=== PATIENT | female | born 1965 | race Caucasian/White ===

== ENCOUNTER 2018-01-05 07:24 | Emergency (ER) | payer OTHER, BC ==
[~2018-01-05] VITALS: Ht 170.2 cm; Wt 57.6 kg
--- NOTE | 2018-01-05 07:52 | PHYS DOC ---
Past Medical History Past Medical History: Diabetes-Type I Past Surgical History: Hysterectomy, Tonsillectomy Alcohol Use: Rarely Drug Use: None Adult General Chief Complaint Chief Complaint: RIB PAIN HPI HPI Patient is a 52 year old female who presents with left rib pain post fall into a bedpost 5 days ago. Patient had moderate pain at that point however pain became significantly worse over the past 48 hours with sitting in a car and traveling on bumpy roads. Patient reports that pain radiates into her left shoulder. Worse with deep breaths as well as movement. Patient denies any nonaccidental trauma. 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 Patient reports minimal relief with hydrocodone as well as tramadol. No nausea or vomiting. No blood in the stool.[] Review of Systems Review of Systems Constitutional: Denies fever or chills [] Eyes: Denies change in visual acuity, redness, or eye pain [] HENT: Denies nasal congestion or sore throat [] Respiratory: Denies cough or shortness of breath [] Cardiovascular: No additional information not addressed in HPI [] GI: Denies abdominal pain, nausea, vomiting, bloody stools or diarrhea [] : Denies dysuria or hematuria [] Musculoskeletal: Denies back pain or joint pain [] Integument: Denies rash or skin lesions [] Neurologic: Denies headache, focal weakness or sensory changes [] Endocrine: Denies polyuria or polydipsia [] All other systems were reviewed and found to be within normal limits, except as documented in this note. Current Medications Current Medications Current Medications Medications (Trade) Dose Ordered Sig/Mara Start Time Stop Time Status Last Admin Dose Admin Info (CONTRAST GIVEN -- Rx MONITORING) 1 each PRN DAILY PRN 01/05/18 08:00 01/07/18 07:59 Iohexol (Omnipaque 300 Mg/ml) 75 ml 1X ONCE 01/05/18 08:00 01/05/18 08:01 DC 01/05/18 08:00 75 ML Ketorolac Tromethamine (Toradol 15mg Vial) 15 mg 1X ONCE 01/05/18 09:00 01/05/18 09:01 DC 01/05/18 08:45 15 MG Morphine Sulfate (Morphine Sulfate) 4 mg 1X ONCE 01/05/18 08:00 01/05/18 08:01 DC 01/05/18 08:14 4 MG Ondansetron HCl (Zofran) 4 mg 1X ONCE 01/05/18 08:00 01/05/18 08:01 DC 01/05/18 08:14 4 MG Allergies Allergies Allergies Coded Allergies Type Severity Reaction Last Updated Verified Tetracyclines Allergy Unknown 01/05/18 Yes codeine Allergy Unknown 01/05/18 Yes Physical Exam Physical Exam Constitutional: Well developed, well nourished, moderate discomfort, non-toxic appearance. [] HENT: Normocephalic, atraumatic, bilateral external ears normal, oropharynx moist, no oral exudates, nose normal. [] Eyes: PERRLA, EOMI, conjunctiva normal, no discharge. [] Neck: Normal range of motion, no tenderness, supple, no stridor. [] Cardiovascular:Heart rate regular rhythm, no murmur [] Lungs & Thorax: Bilateral breath sounds clear to auscultation , tenderness to palpation along the anterior axillary line of the lower ribs. There is no crepitus, no bruising, no costovertebral angle tenderness[] Abdomen: Bowel sounds normal, soft, no tenderness, no masses, no pulsatile masses. [] Skin: Warm, dry, no erythema, no rash. [] Back: No tenderness, no CVA tenderness. [] Extremities: No tenderness, no cyanosis, no clubbing, ROM intact, no edema. [] Neurologic: Alert and oriented X 3, normal motor function, normal sensory function, no focal deficits noted. [] Psychologic: Affect normal, judgement normal, mood normal. [] Current Patient Data Vital Signs Vital Signs Date Time Temp Pulse Resp B/P (MAP) Pulse Ox O2 Delivery O2 Flow Rate FiO2 01/05/18 07:35 98.2 100 20 153/72 (99) 98 Room Air 98.2 Lab Values Laboratory Tests Test 01/05/18 08:05 White Blood Count 4.2 x10^3/uL (4.0-11.0) Red Blood Count 4.58 x10^6/uL (3.50-5.40) Hemoglobin 12.2 g/dL (12.0-15.5) Hematocrit 37.3 % (36.0-47.0) Mean Corpuscular Volume 82 fL (79-100) Mean Corpuscular Hemoglobin 27 pg (25-35) Mean Corpuscular Hemoglobin Concent 33 g/dL (31-37) Red Cell Distribution Width 18.3 % (11.5-14.5) H Platelet Count 361 x10^3/uL (140-400) Neutrophils (%) (Auto) 67 % (31-73) Lymphocytes (%) (Auto) 23 % (24-48) L Monocytes (%) (Auto) 6 % (0-9) Eosinophils (%) (Auto) 4 % (0-3) H Basophils (%) (Auto) 1 % (0-3) Neutrophils # (Auto) 2.8 x10^3uL (1.8-7.7) Lymphocytes # (Auto) 0.9 x10^3/uL (1.0-4.8) L Monocytes # (Auto) 0.2 x10^3/uL (0.0-1.1) Eosinophils # (Auto) 0.1 x10^3/uL (0.0-0.7) Basophils # (Auto) 0.0 x10^3/uL (0.0-0.2) Prothrombin Time 12.8 SEC (11.7-14.0) Prothrombin Time INR 1.0 (0.8-1.1) Urine Collection Type Unknown Urine Color Chelsy Urine Clarity Hazy Urine pH 5.0 Urine Specific [place] 1.025 Urine Protein Negative mg/dL (NEG-TRACE) Urine Glucose (UA) 500 mg/dL (NEG) Urine Ketones (Stick) 15 mg/dL (NEG) Urine Blood Negative (NEG) Urine Nitrite Negative (NEG) Urine Bilirubin Small (NEG) Urine Urobilinogen Dipstick 0.2 mg/dL (0.2 mg/dL) Urine Leukocyte Esterase Negative (NEG) Urine RBC Occ /HPF (0-2) Urine WBC 1-4 /HPF (0-4) Urine Squamous Epithelial Cells Many /LPF Urine Bacteria Mod /HPF (0-FEW) Urine Mucus Marked /LPF Urine Yeast Present /HPF Sodium Level 138 mmol/L (136-145) Potassium Level 4.6 mmol/L (3.5-5.1) Chloride Level 101 mmol/L (98-107) Carbon Dioxide Level 28 mmol/L (21-32) Anion Gap 9 (6-14) Blood Urea Nitrogen 7 mg/dL (7-20) Creatinine 0.8 mg/dL (0.6-1.0) Estimated GFR (Cockcroft-Gault) 75.9 BUN/Creatinine Ratio 9 (6-20) Glucose Level 264 mg/dL (70-99) H Calcium Level 8.7 mg/dL (8.5-10.1) Total Bilirubin 0.3 mg/dL (0.2-1.0) Aspartate Amino Transferase (AST) 122 U/L (15-37) H Alanine Aminotransferase (ALT) 122 U/L (14-59) H Alkaline Phosphatase 273 U/L (46-116) H Total Protein 7.3 g/dL (6.4-8.2) Albumin 3.2 g/dL (3.4-5.0) L Albumin/Globulin Ratio 0.8 (1.0-1.7) L Lipase 63 U/L (73-393) L Laboratory Tests 01/05/18 08:05 Laboratory Tests 01/05/18 08:05 EKG EKG [] Radiology/Procedures Radiology/Procedures CT scan the abdomen and pelvis shows no CT evidence of an acute abdominal or pelvic process. There is a right adnexal hypodensity measuring up to 2.8 cm. If the patient is post menopausal, follow-up pelvic ultrasound is recommended. The patient is premenopausal, finding it and is likely a physiologic cyst and no additional follow-up is needed Chest x-ray and ribs x-ray shows nondisplaced left seventh and probable left eighth rib fractures. No acute cardiopulmonary abnormality.[] Course & Med Decision Making Course & Med Decision Making Pertinent Labs and Imaging studies reviewed. (See chart for details) ED course: Patient arrived, was placed in bed, and tolerated exam well patient did get some relief with IV narcotic pain medicines as well as more relief with the IV NSAIDs. Patient was transported to and from CT scan without any complications. After the return lab and imaging findings these were discussed with the patient, she voiced understanding. All questions were answered. Medical decision making: There is no evidence of a pneumothorax or hemothorax, no evidence of splenic injury nor acute intra-abdominal process from this traumatic mechanism. The cyst was discussed with the patient along with need for follow-up. She voiced that she is perimenopausal.[] Dragon Disclaimer Dragon Disclaimer This electronic medical record was generated, in whole or in part, using a voice recognition dictation system. Departure Departure Impression: Primary Impression: Ribs, multiple fractures Disposition: HOME, SELF-CARE Condition: GOOD Patient Instructions: Rib Fracture Additional Instructions: Follow-up with your regular doctor in 2 days. Return to the ER if worsening pain , difficulty breathing, or any other concerns. As we discussed, there was a right sided low density area measuring up to 2.8 cm in your adnexa. Most likely this is a physiologic ovarian cyst however since you are mumtaz- menopausal this should be followed by your regular doctor. Scripts Oxycodone/Apap 5-325 (PERCOCET 5-325 MG TABLET) 1 Each Tablet 1-2 EACH PO PRN TID PRN for PAIN, #25 TAB pain Prov: QUINTON OCONNOR DO 01/05/18 Meloxicam (MELOXICAM) 7.5 Mg Tablet 7.5 MG PO DAILY, #20 TAB Prov: QUINTON OCONNOR DO 01/05/18 Problem Qualifiers Primary Impression: Ribs, multiple fractures Encounter type: initial encounter Fracture type: closed Laterality: left Qualified Codes: S22.42XA - Multiple fractures of ribs, left side, initial encounter for closed fracture QUINTON OCONNOR DO Jan 05, 2018 07:52
[2018-01-05] MEDS ORDERED: IOHEXOL 300 MG/ML 100ML VIAL. IV ONE (08:00)
[2018-01-05] MEDS ORDERED: MORPHINE SULFATE 4 MG/ML VIAL. IV ONE (08:00)
[2018-01-05] MEDS ORDERED: ONDANSETRON PF 4 MG/2 ML VIAL. IV ONE (08:00)
[2018-01-05] MEDS ORDERED: CONTRAST GIVEN. MC PRN (08:00)
--- NOTE | 2018-01-05 08:15 | RAD ---
Single view chest and 2 views left RIBS 01/05/2018 CLINICAL INDICATION: Fall with pain to the lateral left lower ribs. COMPARISON: None. FINDINGS: Cardiac and mediastinal silhouettes unremarkable. No pleural effusion, pneumothorax or focal consolidation. There is a nondisplaced lateral left 7th rib fracture and likely and 8th rib fracture. IMPRESSION: 1. Nondisplaced left 7th and probable left 8th rib fractures. 2. No acute cardiopulmonary abnormality. Electronically signed by: Tripp Lorenz MD (01/05/2018 8:11 AM) [facility]
[2018-01-05 08:27] LABS: CALCIUM 8.7 mg/dL (8.5-10.1); CREATININE 0.8 mg/dL (0.6-1.0); GFR 75.9; POTASSIUM 4.6 mmol/L (3.5-5.1)
[2018-01-05 08:29] LABS: BILIRUBIN,URINE SMALL (NEG); COLOR,URINE AMBER; NITRITE,URINE NEGATIVE (NEG); PROTEIN,URINE NEGATIVE (NEG-TRACE); UROBILINOGEN,URINE 0.2 mg/dL (0.2 mg/dL)
[2018-01-05 08:30] LABS: BASO % 1 % (0-3); EOS # 0.1 x10^3/uL (0.0-0.7); EOS % 4 % (0-3); HEMATOCRIT 37.3 % (36.0-47.0); HEMOGLOBIN 12.2 g/dL (12.0-15.5); LYMPH # 0.9 x10^3/uL (1.0-4.8); LYMPH % 23 % (24-48); MEAN CORPUSCULAR HEMOGLOBIN 27 pg (25-35); MEAN CORPUSCULAR HGB CONC 33 g/dL (31-37); MEAN CORPUSCULAR VOLUME 82 fL (79-100); MONO # 0.2 x10^3/uL (0.0-1.1); MONO % 6 % (0-9); NEUT # 2.8 x10^3uL (1.8-7.7); NEUT % 67 % (31-73); PLATELET COUNT 361 x10^3/uL (140-400); RED BLOOD COUNT 4.58 x10^6/uL (3.50-5.40); RED CELL DISTRIBUTION WIDTH 18.3 % (11.5-14.5); WHITE BLOOD COUNT 4.2 x10^3/uL (4.0-11.0)
[2018-01-05 08:33] LABS: ALBUMIN 3.2 g/dL (3.4-5.0); ALBUMIN/GLOBULIN RATIO 0.8 (1.0-1.7); TOTAL BILIRUBIN 0.3 mg/dL (0.2-1.0); TOTAL PROTEIN 7.3 g/dL (6.4-8.2)
[2018-01-05 08:49] LABS: PROTHROMBIN TIME PATIENT 12.8 SEC (11.7-14.0)
[2018-01-05 08:50] LABS: BACTERIA,URINE MOD /HPF (0-FEW); CLARITY,URINE HAZY; RBC,URINE OCC /HPF (0-2); SQUAMOUS EPITHELIAL CELL,UR MANY /LPF
[2018-01-05 08:52] LABS: YEAST,URINE PRESENT /HPF
[2018-01-05] MEDS ORDERED: KETOROLAC 15 MG/ML VIAL. IV ONE (09:00)
--- NOTE | 2018-01-05 09:13 | RAD ---
CT Abdomen and Pelvis with contrast 01/05/2018 Clinical Indication: Upper quadrant abdominal pain fall with rib pain Comparison: None Technique: Multiple CT images of the abdomen and pelvis were obtained with contrast following intravenous administration of 75 mL Omnipaque 300 *One or more of the following individualized dose reduction techniques were utilized for this examination: 1. Automated exposure control. 2. Adjustment of the mA and/or kV according to patient size. 3. Use of iterative reconstruction technique. Findings: Heart size is normal. Partial visualization of bilateral breast implants. The visualized lung bases are clear. Liver, gallbladder, adrenal glands, spleen, and kidneys are unremarkable. There is mild prominence, without pathologic dilatation, of the main pancreatic duct throughout measuring 2 mm without focal pancreatic atrophy. Abdominal aorta normal in caliber. Major portal veins are patent. No retroperitoneal or mesenteric lymphadenopathy. Small and large bowel loops are normal in caliber without obstruction. Appendix is not discretely identified, however no secondary findings of appendicitis of the base of the cecum. No abdominal free fluid or pneumoperitoneum. Urinary bladder is decompressed. Hysterectomy with the vaginal cuff unremarkable. Right adnexal hypodensity measuring 2.8 x 2.2 cm series 2/image 75. No pelvic free fluid. No iliac or inguinal lymphadenopathy. There are no destructive osseous lesions. IMPRESSION: 1. No CT evidence of acute abdominal or pelvic process. 2. Right adnexal hypodensity measuring up to 2.8 cm. If the patient is postmenopausal, follow-up pelvic ultrasound is recommended. If the patient is premenopausal, finding and is likely a physiologic cyst and no additional follow-up is needed. Electronically signed by: Tripp Lorenz MD (01/05/2018 9:10 AM) [facility]
[2018-01-05] MEDS ORDERED: OXYC1TAB15 PO (09:57)
[2018-01-05] MEDS ORDERED: MELO7.5T29 PO (09:57)
[2018-01-05 10:19] VITALS: BP 123/57
== END 2018-01-05 10:20 | disposition home or self-care (01) ==
LOC: ER 07:24
DX: S22.42XA Multiple fractures of ribs, left side, initial encounter for closed fracture (principal); E10.9 Type 1 diabetes mellitus without complications; M25.512 Pain in left shoulder; W17.89XA Other fall from one level to another, initial encounter; Y93.89 Activity, other specified; Y92.89 Other specified places as the place of occurrence of the external cause; Y99.8 Other external cause status
CPT/HCPCS: 36415; 71101; 74177; 80053; 81001; 83690; 85025; 85610; 96374; 96375; 99284; J1885; J2270; J2405; Q9967